=== PATIENT | female | born 1990 | race Caucasian/White ===

== ENCOUNTER 2019-09-11 07:14 | Day surgery (SDC) | payer MEDICAID ==
[~2019-09-11] VITALS: Ht 172.7 cm; Wt 77.1 kg
[~2019-09-11 07:14] MED LIST: CHOL20004 PO; DIPH25TA24 PO; GUAN2TAB PO; LEVO1TAB PO; SERT50TA12 PO
[2019-09-11] MEDS: LACTATED RINGERS 1,000 ML IV SCH ×2 (08:28→08:36)
[2019-09-11 08:32] LABS: BASOPHILS % 1.1 % (0.0-2.0); EOSINOPHILS % 4.7 % (0.0-5.0); HEMATOCRIT. 39.5 % (36.0-48.0); HEMOGLOBIN. 13.7 g/dL (12.0-16.0); LYMPHOCYTES % 26.6 % (20.0-50.0); MEAN CORPUSCULAR HEMOGLOBIN 29.1 pg (28.0-32.0); MEAN CORPUSCULAR VOLUME 84.1 fL (81.0-99.0); MEAN PLATELET VOLUME 7.6 fl (7.4-10.4); MONOCYTES % 7.1 % (2.0-8.0); NEUTROPHILS % 60.5 % (40.0-76.0); PLATELET 195 x1000/uL (130-400)
[2019-09-11 08:35] LABS: CHLORIDE 108 mEq/L (98-107)
[2019-09-11 08:36] LABS: PARTIAL THROMBOPLASTIN TIME 28.3 sec (23.4-31.0); PROTHROMBIN TIME 10.7 sec (9.6-11.0)
[2019-09-11 08:46] LABS: B-HCG QUANTITATIVE < 1 mIU/mL (<3)
[2019-09-11] MEDS ORDERED: DEXT 5%/0.45% NACL KCL 20MEQ/L 1,000 ML IV SCH (09:44)
[2019-09-11] MEDS ORDERED: KETOROLAC 60MG/2ML VIAL IM SCH (09:45)
[2019-09-11] MEDS ORDERED: FERRIC SUBSULFATE SOLN 8GM TOP SCH (09:45)
[2019-09-11] MEDS ORDERED: ONDANSETRON HCL 4MG/2ML INJ IV PRN (09:45)
== END 2019-09-11 11:30 | disposition home or self-care (01) ==
LOC: OR 07:14
PROVIDERS: ATTEND Specialist
DX: N84.1 Polyp of cervix uteri (principal); F31.77 Bipolar disorder, in partial remission, most recent episode mixed; F81.9 Developmental disorder of scholastic skills, unspecified; Z79.899 Other long term (current) drug therapy
CPT/HCPCS: 36415; 84702; 88305